=== PATIENT | female | born 1995 | race Caucasian/White ===

== ENCOUNTER 2022-12-11 08:56 | Outpatient (CLI) | payer OTHER, SELFPAY ==
--- NOTE | ~2022-12-11 | MR_ITS ---
EXAMINATION: MR knee LT w con DATE: 12/11/2022 10:57 INDICATION: ACUTE PAIN OF LEFT KNEE TECHNIQUE: Magnetic resonance imaging (MRI) of the left knee was performed without intravenous contra st. Sequences included axial PD-weighted FS FSE, coronal PD-weighted FSE and PD-weighted FS FSE, sagi ttal PD-weighted FSE, and sagittal T2-weighted FS FSE. COMPARISON: None. FINDINGS: Medial compartment: Meniscus intact. Moderate diffuse cartilage thinning. Mild osteophytosis. Lateral compartment: Meniscus intact. Moderate diffuse cartilage thinning. Mild osteophytosis. Patellofemoral compartment: Partial-thickness cartilage signal abnormality along the lateral facet, with partial-thickness fissur ing and shearing. Mild lateral patellar subluxation. Insall Salvati ratio of 1.5. Ligaments and tendons: The ACL, PCL, MCL, and LCL are intact. Remaining flexor and extensor tendons are intact. Fluid: The joint capsule is distended by contrasted fluid, post arthroscopic injection. No loose joint body. Osseous/other: No suspicious focal or diffuse marrow signal. IMPRESSION: Moderate chondromalacia patellae. Patella laurie. Moderate medial and lateral compartment knee osteoart hritis. Reviewed, dictated and finalized at location K. IMPRESSION: Moderate chondromalacia patellae. Patella laurie. Moderate medial and lateral com partment knee osteoarthritis.
--- NOTE | ~2022-12-11 | XR_ITS ---
EXAMINATION: XR fl inj knee LT for MR/CT DATE: 12/11/2022 10:29 INDICATION: Left knee pain. TECHNIQUE: A time-out was performed to verify the patient's name, date of , and procedure to b e performed. The procedure including the risks, benefits, and alternatives was discussed with the pat ient. Risks discussed included bleeding and infection. The patient understood the risks and agreed to proceed. The skin overlying the left knee joint was prepped and draped in usual sterile fashion. An esthetic was administered with 1% lidocaine subcutaneously. A 22 G needle was advanced under fluoros copic guidance into the joint. Subsequently, injectate consisting of 35 mL of 1:200 Multihance, 1:4 1% lidocaine, and 1:4 Omnipaque 240 was instilled. The needle was removed and the entry site was sri aned and dressed. There were no immediate complications. Fluoroscopy exposure time was 0.1 minutes. The total number of images was 1. FINDINGS: Real-time fluoroscopy demonstrates the needle and contrast in the left knee joint. IMPRESSION: 1. Successful left knee joint injection of contrast for subsequent MR arthrography. Reviewed, dictated and finalized at location A. IMPRESSION: 1. Successful left knee joint injection of contrast for subsequent MR arthrogra phy.
== END 2022-12-11 08:57 | disposition home or self-care (01) ==
PROVIDERS: Visit Provider Orthopaedic Surgery
DX: M25.562 Pain in left knee (principal); M22.42 Chondromalacia patellae, left knee
CPT/HCPCS: 20610; 73722; 77002; A9577; Q9966